=== PATIENT | male | born 1945 | race Caucasian/White ===

== ENCOUNTER → 2018-06-22 | Outpatient (CLI) | payer MEDICARE, OTHER ==
[~2018-06-22] MED LIST: ASPIRIN E.C. 8181 MG PO; CIPRO 500MG TA500 MG PO; FLOMAX 0.40.4 MG/CAP PO; METOPROLOL50 MG PO; NITROSTAT0.15 MG SL; SIMVASTATIN20 MG PO
[2018-06-22 10:03] LABS: CHOLESTEROL RISK RATIO 2.6
== END ==
LOC: COL.LAB 09:19
PROVIDERS: Family Medicine
DX: E78.5 Hyperlipidemia, unspecified (principal)

== ENCOUNTER → 2018-08-17 | Outpatient (CLI) | payer MEDICARE, OTHER ==
[2018-08-17 08:33] LABS: BASO # 0.1 (0.0-0.2); BASO % 0.6 % (0.0-2.0); EOS # 0.1 (0.0-0.7); EOS % 1.4 % (0-4.0); GRAN # 5.5 (1.4-6.5); GRAN % 71.1 % (42.2-75.2); HEMATOCRIT 42.1 % (42.0-52.0); HEMOGLOBIN 13.9 g/dl (13.5-18.0); LYMPH # 1.1 (1.2-3.4); LYMPH % 13.6 % (20.0-51.0); MEAN CELL VOLUME 93 fl (80.0-100.0); MEAN CORPUSCULAR HEMOGLOBIN 31 pg (27.0-31.0); MEAN CORPUSCULAR HGB CONC 33 g/dl (33.0-37.0); MEAN PLATELET VOLUME 10.7 fl (7.4-10.4); MONO % 12.5 % (1.7-9.3); PLATELET COUNT 217 K/mm3 (130-400); RED BLOOD COUNT 4.51 M/mm3 (4.20-5.60); REDCELL DISTRIBUTION WIDTH-CV 14.6 % (11.5-14.5)
[2018-08-17 08:37] LABS: CALCIUM 9.2 mg/dL (8.4-10.2); CREATININE, serum 1.25 mg/dL (0.66-1.25); POTASSIUM 4.2 mmol/L (3.4-5.0)
== END ==
LOC: COL.CARD 07:40
PROVIDERS: Urology
DX: N40.0 Benign prostatic hyperplasia without lower urinary tract symptoms (principal); D49.4 Neoplasm of unspecified behavior of bladder; L98.9 Disorder of the skin and subcutaneous tissue, unspecified

== ENCOUNTER 2018-09-06 08:08 | Day surgery (SDC) | payer MEDICARE, OTHER ==
[~2018-09-06] VITALS: Ht 177.8 cm; Wt 99.6 kg
[2018-09-06] VITALS (8 sets, daily range): BP systolic 146–178; BP diastolic 62–83; PULSE 64–76; TEMP 98–98.2
[2018-09-06] MEDS ORDERED: THEO-DUR 3300 MG/TAB PO (09:16)
[2018-09-06] MEDS ORDERED: COZAAR 25MG25 MG/TAB PO (09:17)
[2018-09-06] MEDS ORDERED: CORDARONE200 MG/TAB PO (09:18)
[2018-09-06] MEDS ORDERED: PULMICORT0.5 MG/2 M IH (09:19)
[2018-09-06] MEDS ORDERED: IMDUR 30MG30 MG/TAB PO (09:22)
[2018-09-06] MEDS ORDERED: BROVANA15 MCG/2 M IH (09:22)
--- NOTE | 2018-09-06 17:25 | NUR ---
PT TO ROOM 321-2 PER BED WITH YAKELIN JACOBS GIVING REPORT @0586. PATIENT IS A/O X3, LUNGS CLEAR, BOWEL SOUNDS PRESENT. BLANKENSHIP TO DD WITH CBI SLOW CLEAR FLUID IN COLLECTION BAG. PT DENIES PAIN, LOOKING AT MENU FOR FOOD.
--- NOTE | 2018-09-06 21:00 | NUR ---
Patient in bed, is alert and oriented x4. Has Oxygen on at 3L/nc as per at home, patient has COPD with O2 dependency. Lungs are diminished without wheeze. Abdomen soft, has gauze dressing to left groin, D/I. Has mcknight to BSD with CBI infusing at moderate rate. Urine is bloody in tubing. Patient denies pain. Mcknight catheter care provided. HS meds administered. Placed SCD's on patient. IVF infusing to left hand at 100cc/hr without redness or swelling.
[2018-09-07] VITALS (8 sets, daily range): BP systolic 133–194; BP diastolic 62–82; PULSE 58–74; TEMP 97.6–98.6
--- NOTE | 2018-09-07 00:30 | NUR ---
CBI continues at moderate rate with pink tinged urine noted in tubing. Taking oral fluids well and will cap IVF after this bag is complete. Resting well in bed.
--- NOTE | 2018-09-07 05:00 | NUR ---
Denies pain, CBI continues at minimal rate with pink tinged urine in mcknight tubing.
--- NOTE | 2018-09-07 09:05 | NUR ---
Initial visit; Patient thanked Business Enterprise Officer for offering spiritual care and wishing him God's blessings.
--- NOTE | 2018-09-07 10:16 | NUR ---
CRISTI and SW student met with the patient to discuss discharge plan. The patient lives in [place] with his , Xin. The patient uses oxygen at home and receives his oxygen from [facility] in [place]. The patient states that he has a walker available at home but does not currently need to use it. The patient's PCP is Dr. Guevara Lee and he receives his medications from [facility] in [place]. The patient reports no difficulties obtaining his medications. The patient's living will is in his chart but not a DPOA-HC. The patient plans to return home with his upon discharge. No additional needs at this time.
--- NOTE | 2018-09-07 18:00 | NUR ---
Patient has done well today. His blood pressure has been elevated even after his morning medications. Discussed that after he gets out of the hospital he needs to follow up with primary care doctor. His BP was elevated on admission before surgery. Urine is a lot clearer than it was this am. Very few clots this am. Denies pain today. No complaints of nausea. CBI flowing very slowly. No other changes at this time. Call light within reach.
--- NOTE | 2018-09-07 21:00 | NUR ---
Patient awake, alert and oriented x4. Has oxygen at 3L/NC. IV to left hand without redness or swelling, still receiving Ancef 2GM's every 8 hrs. Mcknight to BSD with CBI that is clamped, urine yellow without clots. Has dry drsg to left groin. Denies pain. Hopes to go home tomorrow. Takes HS meds at this time, mcknight cares given.
[2018-09-08 00:26] VITALS: BP 135/59; PULSE 58
--- NOTE | 2018-09-08 00:30 | NUR ---
Urine remains yellow with CBI clamped.
[2018-09-08 03:44] VITALS: BP 148/64; PULSE 58; TEMP 98.4
--- NOTE | 2018-09-08 06:00 | NUR ---
Patient denies pain. CBI remains clamped, urine yellow.
[2018-09-08 07:54] VITALS: BP 166/61; PULSE 72; TEMP 97.7
--- NOTE | 2018-09-08 09:18 | NUR ---
patient in hospital due to removal of groing lesion. found patient resting in bed. A&OX4. stated no pain, provided catheter care. IV in left hand showed signs of previous bleeding but none currently. on O2 at 3 liters. call light within reach. patient stated no further needs.
--- NOTE | 2018-09-08 11:03 | NUR ---
unable to give cefazolin. IV access failed.
[2018-09-08 12:47] VITALS: BP 137/57; PULSE 80; TEMP 97.4
--- NOTE | 2018-09-08 12:58 | NUR ---
Follow-up visit; Patient thanked Oil Gas And Pipe Tester for looking in on him again today and wishing him well.
--- NOTE | 2018-09-08 13:05 | NUR ---
CBI going. producing very light pink drainage into mcknight. patient refused bath for the moment wantint to wait until their doctor visit. patient stated no pain. family members are visiting. call light within reach.
--- NOTE | 2018-09-08 13:54 | NUR ---
removed mcknight. removed 30ml of fluid from bladder of mcknight. slight drainage after removing.
[2018-09-08 15:35] VITALS: BP 145/56; PULSE 77; TEMP 97.8
--- NOTE | 2018-09-08 19:00 | NUR ---
Patient has been voiding very little amounts since mcknight catheter discontinued. Bladder scanned before and after a void and patient is only voiding about half the amount of what is in his bladder. Patient is staying the night because of the urianary retention. Dr Calvo came by to see patient. No other changes at this time. Call light within reach.
[2018-09-08 19:55] VITALS: BP 152/59; PULSE 78; TEMP 98.3
--- NOTE | 2018-09-08 20:40 | NUR ---
Shift assessment complete. Patient resting in bed, denies pain. PVR bladder scan 26ml. Patient waiting for respiratory to apply CPAP. Will continue to assess bladder function.
--- NOTE | 2018-09-08 22:57 | NUR ---
Patient resting in bed, sleeping. Will reassess pain when awake.
[2018-09-09 01:41] VITALS: BP 149/67; PULSE 59; TEMP 98.3
--- NOTE | 2018-09-09 04:36 | NUR ---
Patient resting in bed. Denies pain currently. Says pain "hurts like the dickens" when urinating. Patient agreeable to ordered tylenol. Will reassess to make sure tylenol is sufficient. Patient ok with plan.
[2018-09-09 04:39] VITALS: BP 147/79; PULSE 56; TEMP 97.9
[2018-09-09 09:00] VITALS: BP 158/72; PULSE 73; TEMP 98.3
[2018-09-09 12:51] VITALS: BP 118/60; PULSE 79; TEMP 97.7
--- NOTE | 2018-09-09 15:10 | NUR ---
Voiding tea colored urine with some burning. Ambulatory in room with O2. Dismissed to home with family.
== END 2018-09-09 15:10 | disposition home or self-care (01) ==
LOC: SDCO 08:08 → SURG 16:40 → SDCO 09-08 16:40 → SURG 09-08 16:40 → SDCO 09-09 15:10
DX: C67.9 Malignant neoplasm of bladder, unspecified (principal); N30.81 Other cystitis with hematuria; N40.1 Benign prostatic hyperplasia with lower urinary tract symptoms; R33.8 Other retention of urine; Z79.899 Other long term (current) drug therapy; N42.0 Calculus of prostate; D22.5 Melanocytic nevi of trunk; K26.9 Duodenal ulcer, unspecified as acute or chronic, without hemorrhage or perforation; I48.0 Paroxysmal atrial fibrillation; Z95.5 Presence of coronary angioplasty implant and graft; Z79.82 Long term (current) use of aspirin; Z87.891 Personal history of nicotine dependence; G43.909 Migraine, unspecified, not intractable, without status migrainosus; Z85.828 Personal history of other malignant neoplasm of skin; G47.33 Obstructive sleep apnea (adult) (pediatric); J44.9 Chronic obstructive pulmonary disease, unspecified; I25.5 Ischemic cardiomyopathy; I25.10 Atherosclerotic heart disease of native coronary artery without angina pectoris; I10 Essential (primary) hypertension; E78.5 Hyperlipidemia, unspecified; Z80.0 Family history of malignant neoplasm of digestive organs; Z82.3 Family history of stroke; Z82.49 Family history of ischemic heart disease and other diseases of the circulatory system
CPT/HCPCS: OP; J0690; J2250; J2270; J2704; J3010; J3480; J7120

== ENCOUNTER → 2018-09-19 | Outpatient (CLI) | payer MEDICARE, OTHER ==
[~2018-09-19] MED LIST changes: +BROVANA15 MCG/2 M IH; +CORDARONE200 MG/TAB PO; +COZAAR 25MG25 MG/TAB PO; +IMDUR 30MG30 MG/TAB PO; +PULMICORT0.5 MG/2 M IH; +THEO-DUR 3300 MG/TAB PO
[2018-09-19 17:03] LABS: COLLECTION METHOD CLEAN CATCH
[2018-09-19 17:05] LABS: BASO % 0.4 % (0.0-2.0); EOS # 0.2 (0.0-0.7); EOS % 3.3 % (0-4.0); GRAN # 5.2 (1.4-6.5); GRAN % 71.9 % (42.2-75.2); HEMATOCRIT 44.1 % (42.0-52.0); HEMOGLOBIN 14.4 g/dl (13.5-18.0); LYMPH # 0.9 (1.2-3.4); MEAN CELL VOLUME 93 fl (80.0-100.0); MEAN CORPUSCULAR HEMOGLOBIN 30 pg (27.0-31.0); MEAN CORPUSCULAR HGB CONC 33 g/dl (33.0-37.0); MEAN PLATELET VOLUME 10.6 fl (7.4-10.4); MONO # 0.8 (0.1-0.6); MONO % 10.6 % (1.7-9.3); PLATELET COUNT 191 K/mm3 (130-400); RED BLOOD COUNT 4.74 M/mm3 (4.20-5.60); REDCELL DISTRIBUTION WIDTH-CV 14.7 % (11.5-14.5)
[2018-09-19 17:41] LABS: MUCOUS Present /lpf; PH 5 (5-8); SQUAMOUS EPITHELIAL 0-2 /hpf; URINE APPEARANCE Hazy; URINE BACTERIA Rare /hpf; URINE BILIRUBIN Negative (NEGATIVE); URINE BLOOD 3+ (NEGATIVE); URINE COLOR Yellow; URINE GLUCOSE Negative (NEGATIVE); URINE KETONE Negative (NEGATIVE); URINE LEUKOCYTE ESTERASE 1+ (NEGATIVE); URINE NITRATE Negative (NEGATIVE); URINE PROTEIN(semi-quant) 1+ (NEGATIVE); URINE RBC >50 /hpf; URINE UROBILINOGEN Negative (NEGATIVE); URINE WBC >50 /hpf
== END ==
LOC: COL.RAD 15:51
PROVIDERS: Internal Medicine Pulmonary Disease
DX: R06.02 Shortness of breath (principal); R06.00 Dyspnea, unspecified

== ENCOUNTER 2018-10-25 08:29 | Day surgery (SDC) | payer MEDICARE, OTHER ==
[2018-10-25] VITALS (10 sets, daily range): BP systolic 118–157; BP diastolic 64–79; PULSE 68–72; TEMP 97.3–98.5
[~2018-10-25] VITALS: Ht 175.3 cm; Wt 96.7 kg
[2018-10-25] MEDS ORDERED: TOPROL XL 25MG25 MG PO (09:05)
[2018-10-25] MEDS ORDERED: ATROVENT I0.2 MG/1 M IH (09:08)
[2018-10-25] MEDS ORDERED: LEVAQUIN 5500 MG/TA1 PO (09:09)
[2018-10-25] MEDS ORDERED: PROAIR HFA0.09 MG/AC IH (09:09)
--- NOTE | 2018-10-25 10:30 | NUR ---
Patient is resting and awaits surgery. Spouse in room and call light remains in reach.
--- NOTE | 2018-10-25 14:17 | NUR ---
PATIENT TO ROOM 348 PER BED WITH REPORT FROM YAKELIN JACOBS. PT IS A/O X3 CBI TO DD WITH CLEAR FLUID IN BLANKENSHIP BAG. IV TO PUMP PER ORDERS. O2 @ 3L, ORIENTED PT TO ROOM.
--- NOTE | 2018-10-25 16:12 | NUR ---
PATIENT EATING AND DRINKING DENIES NEEDS\PAIN.
--- NOTE | 2018-10-25 18:59 | NUR ---
REPORT TO EDER JACOBS.
--- NOTE | 2018-10-25 22:10 | NUR ---
Pt resting in bed, CBI is flowing freely with yellow fluid drainage, shift assessments complete, left Pt call light in reach, bed in lowest position.
[2018-10-26] VITALS: BP 158/66; PULSE 65; TEMP 97.9
[2018-10-26 04:00] VITALS: BP 172/79; PULSE 62; TEMP 98.1
[2018-10-26 07:24] VITALS: BP 159/70; PULSE 60; TEMP 97.8
--- NOTE | 2018-10-26 09:02 | NUR ---
Initial visit; Patient thanked Services Program Manager for looking in on him and wishing him well.
[2018-10-26 12:03] VITALS: BP 139/65; PULSE 71; TEMP 98.1
--- NOTE | 2018-10-26 13:14 | NUR ---
Patient alert and oriented, answers questions appropriately. See assessment. Ulloa catheter patent and draining clear yellow urine, CBI clamped. C/o occasional bladder spasm pain, no other c/o at this time.
--- NOTE | 2018-10-26 13:48 | NUR ---
SW met with patient to discuss discharge planning. Patient lives independently at home with his . Patient's PCP is Dr Guevara Lee and he obtains prescriptions from [facility] pharmacy. Patient does not use any medical equipment or home health services. Patient reports he does have a DPOA. SW does not anticipate any discharge needs.
--- NOTE | 2018-10-26 13:49 | NUR ---
Pt. is laying in bed sleeping at this time. Breathing is even and nonlabored. Pt. appears comfortable and not in pain. Call light in reach and bed low. Catheter draining clear yellow urine.
[2018-10-26 16:07] VITALS: BP 153/69; PULSE 67; TEMP 97
[2018-10-26 20:32] VITALS: BP 159/68; PULSE 67; TEMP 98.5
--- NOTE | 2018-10-26 21:03 | NUR ---
Patient resting in bed. Assessment completed- lungs clear, abdominal sounds active, uplses +3, cap refill <3 seconds. Indwelling mcknight catheter in place with dependent drainage. Denies pain/nausea. Evening medications administered. No further needs at this time.
[2018-10-27] VITALS: BP 178/75; PULSE 63; TEMP 98.9
[2018-10-27 00:33] VITALS: BP 160/80
--- NOTE | 2018-10-27 00:33 | NUR ---
Elevated BP noted, manual BP obtained after repositioning pt. SBP 160, closer to pt's baseline, will continue to monitor.
[2018-10-27 04:00] VITALS: BP 168/78; PULSE 64; TEMP 98.3
--- NOTE | 2018-10-27 05:16 | NUR ---
Pt slept for most of the night. Ulloa catheter in place. No reports of pain. No needs at this time.
--- NOTE | 2018-10-27 07:02 | NUR ---
REPORT GIVEN TO REYNALDO SAEED.
[2018-10-27 07:14] VITALS: BP 169/75; PULSE 66; TEMP 98
--- NOTE | 2018-10-27 08:00 | NUR ---
PATIENT SITTING UP IN BED THIS MORNING. PATIENT IS A&O. VSS. PATIENT STATES THAT HE HAS SOME SOB WITH ACTIVITY. SHALLOW BRETHING NOTED. ALL LUNG PETERSON DIMINISHED UPON AUSCULTATION. PATIENT STATES THAT HE HAS A PRODUCTIVE COUGH WITH CLEAR MUCOUS. BLANKENSHIP CATHETER TO DEPENDENT DRAINAGE WITH CLEAR YELLOW URINE PRESENT IN BLANKENSHIP BAG. RIGHT FOREARM TO INT. CALL LIGHT WITHIN REACH. PATIENT DENIES ANY NEEDS AT THIS TIME.
--- NOTE | 2018-10-27 10:02 | NUR ---
Follow-up visit; Patient and his thanked Student Advisor for looking in on him again today and wishing him well.
[2018-10-27 12:24] VITALS: BP 167/64; PULSE 69; TEMP 98
--- NOTE | 2018-10-27 13:39 | NUR ---
Pt resting in bed with visiting. Pt waiting on Dr Calvo to come and visit to see if he could be released. Pt ambulated to bathroom for BM but stated just gas. Pt also stated blood in toilet d/t straining. Nurse notified.
--- NOTE | 2018-10-27 15:20 | NUR ---
PATIENT'S BLANKENSHIP CATHETER PRIMED WITH 120MLS OF STERILE WATER AND PULLED. 29 MLS OF SALINE ASPIRATED FROM BLANKENSHIP BALLOON. PATIENT TOLERATED WELL. 6 CUP ROUTINE STARTED PER DR. KIRKLAND'S ORDERS.
[2018-10-27 16:15] VITALS: BP 163/73; PULSE 72; TEMP 97.8
--- NOTE | 2018-10-27 17:55 | NUR ---
PATIENT'S LEFT HAND INT DC'D PER PENDING DISCHARGE. PATIENT TOLERATED WELL. DISCHARGE INSTRUCTIONS REVIEWED WITH PATIENT AND . ALL QUESTIONS ANSWERED. PATIENT PERSONAL BELONGINGS GATHERED. PATIENT TAKEN TO PERSONAL VEHICLE VIA WHEELCHAIR BY SURGICAL STAFF. PATIENT DISCHARGED.
== END 2018-10-27 18:05 | disposition home or self-care (01) ==
LOC: SDCO 08:29 → SURG 14:00 → SDCO 10-27 18:05
DX: C67.2 Malignant neoplasm of lateral wall of bladder (principal); Z95.5 Presence of coronary angioplasty implant and graft; N30.81 Other cystitis with hematuria; N30.31 Trigonitis with hematuria; Z79.899 Other long term (current) drug therapy; Z79.82 Long term (current) use of aspirin; Z87.891 Personal history of nicotine dependence
CPT/HCPCS: OP; J0461; J0690; J2405; J2704; J3010; J3480; J7120

== ENCOUNTER 2018-11-24 07:33 | Day surgery (SDC) | payer MEDICARE, OTHER ==
[2018-11-24] VITALS (11 sets, daily range): BP systolic 132–156; BP diastolic 54–76; PULSE 59–69; TEMP 97.6–97.8
[~2018-11-24] VITALS: Ht 175.3 cm; Wt 98.1 kg
[~2018-11-24 07:33] MED LIST changes: +ATROVENT I0.2 MG/1 M IH; +LEVAQUIN 5500 MG/TA1 PO; +PROAIR HFA0.09 MG/AC IH; +TOPROL XL 25MG25 MG PO
--- NOTE | 2018-11-24 08:56 | NUR ---
Patient resting on cart and awaits surgery. IV fluids infusing and spouse in room. Call light in reach.
[2018-11-24] MEDS ORDERED: TOVIAZ8 MG PO (08:58)
--- NOTE | 2018-11-24 12:40 | NUR ---
Patient up from OR. Alert and oriented x3. CBI infusing at a very slow rate. Ulloa to dependent drainage with clear yellow urine present in bag. Post op fluids infusing via gravity. Denies pain or further needs at this time.
--- NOTE | 2018-11-24 18:29 | NUR ---
Patient in room resting. CBI continues to infuse at a very slow rate, mcknight to dependent drainage with clear yellow urine present in bag. Continues to deny pain at this time. Tolerating eating and drinking without c/o nausea. Denies further needs at this time. Will report off to awake overnight monitor.
--- NOTE | 2018-11-24 20:00 | NUR ---
REPORT RECEIVED. ASSUMED CARE FOR TACTICAL DECEPTION PLANS OFFICER. PLAN OF CARE DISCUSSED. ASSESSMENT COMPLETE. VS STABLE. DENIES PAIN. CBI TO DEPENDENT DRAINAGE-SLOW DRIP-URINE IS CLEAR AND LIGHT YELLOW. DENIES N/V. TOLERATING PO. CALL LIGHT WITHIN REACH. BED IN LOW POSITION. WHEELS LOCKED. WILL MONITOR.
[2018-11-25 00:12] VITALS: BP 150/62; PULSE 61; TEMP 98.4
--- NOTE | 2018-11-25 03:47 | NUR ---
HAS SLEPT MOST OF THIS SHIFT. DENIES PAIN. VS HAVE REMAINED STABLE. CBI FLOWING AT A SLOW RATE TO DEPENDENT DRAINAGE. HAS REMAINED LIGHT YELLOW/CLEAR. DENIES NEEDS AT THIS TIME. WILL MONITOR.
[2018-11-25 04:50] VITALS: BP 159/76; PULSE 61; TEMP 97.9
--- NOTE | 2018-11-25 05:15 | NUR ---
Discontined mcknight catheter, primed bladder with 150 of fluid, aspirated 25ml of fluid from balloon. Patient tolerated procedure well. Educated patient on 6 cup routine. Provided patient with urinal. Denies further needs at this time.
--- NOTE | 2018-11-25 06:46 | NUR ---
REPORT GIVEN TO REYNALDO OLVERA
[2018-11-25 07:26] VITALS: BP 173/66; PULSE 62; TEMP 98.1
--- NOTE | 2018-11-25 08:30 | NUR ---
Patient in bed resting. Alert and oriented x 3. Shift assessment complete. CBI clamped, mcknight to dependent drainage with clear yellow urine present in bag. Assisted patient to restroom, x1 assist, steady gait. Denies pain or further needs at this time.
[2018-11-25 12:16] VITALS: BP 165/61; PULSE 65; TEMP 98
--- NOTE | 2018-11-25 12:29 | NUR ---
Clinical Data Associate offered to pray but just visited briefly with patient.
--- NOTE | 2018-11-25 15:20 | NUR ---
Patient voided without difficulty, clear yellow urine.
--- NOTE | 2018-11-25 15:29 | NUR ---
Dr. Calvo in to see patient
--- NOTE | 2018-11-25 16:10 | NUR ---
Discharge instructions provided to patient. Educated on activity restrictions and when to call providers. Patient verbalized understanding. All questions answered. INT to left wrist discontinued, catheter tip intact. Tolerated procedure well. Denies further needs at this time. Patient out by wheelchair with surgical staff.
== END 2018-11-25 16:04 | disposition home or self-care (01) ==
LOC: SDCO 07:33 → SURG 14:43 → SDCO 11-25 16:04
DX: C67.1 Malignant neoplasm of dome of bladder (principal); N30.80 Other cystitis without hematuria; R35.0 Frequency of micturition; Z95.5 Presence of coronary angioplasty implant and graft; Z87.891 Personal history of nicotine dependence; Z79.899 Other long term (current) drug therapy; Z79.82 Long term (current) use of aspirin; Z85.038 Personal history of other malignant neoplasm of large intestine
CPT/HCPCS: OP; J0690; J2370; J2405; J2550; J2704; J3010; J7050; J7120

== ENCOUNTER 2018-12-15 09:04 | Day surgery (SDC) | payer MEDICARE, OTHER ==
[~2018-12-15] VITALS: Ht 175.3 cm; Wt 99.6 kg
[~2018-12-15 09:04] MED LIST changes: +TOVIAZ8 MG PO
[2018-12-15 09:31] VITALS: BP 162/74; PULSE 64; TEMP 97.5
[2018-12-15 11:57] VITALS: BP 136/73; PULSE 103; TEMP 97.3
--- NOTE | 2018-12-15 11:57 | NUR ---
The patient arrived back to [place] [facility] from the operating room at this time. The patient appears drowsy but arouses easily to his name. The patient's dressing to his left chest appears clean, dry, and intact. The patient's post operative vital signs were started at this time. The patient's was not in the waiting room at this time, the nurse will check again for her later. Call light is within reach. Will continue to monitor the patient.
[2018-12-15 12:12] VITALS: BP 156/74; PULSE 57
--- NOTE | 2018-12-15 12:12 | NUR ---
The patient appears more alert at this time. The patient's is back in the waiting room and was brought back to be at the patient's bedside. The patient agrees to try some ice water. Will continue to monitor the patient.
[2018-12-15 12:27] VITALS: BP 169/80; PULSE 58
[2018-12-15] MEDS ORDERED: NORCO 325 MG-51 TAB PO (12:27)
--- NOTE | 2018-12-15 12:27 | NUR ---
The patient tried some ice water and appeared to tolerate it well. The patient voices a desire to be discharged home at his next vital sign check. The patient's remains at his bedside at [facility]. The patient denies any pain or nausea at this time. Vital signs appear stable. Will continue to monitor the patient.
[2018-12-15 12:50] VITALS: BP 162/72; PULSE 57
--- NOTE | 2018-12-15 12:50 | NUR ---
Discharge instructions were reviewed with the patient and his at this time. They both verbalized understanding and have no questions for the nurse at this time. The patient's IV to his left hand was removed and a pressure dressing was applied to the site. The nurse instructed the patient to get dressed and notify the staff when he is ready to be escorted out.
--- NOTE | 2018-12-15 13:10 | NUR ---
The patient was escorted out via wheelchair to a private vehicle by REYNALDO Espino. The patient's belongings and discharge paperwork were sent with him. The patient's is present to drive him home. The patient was placed back on his home oxygen at 3L per nasal cannula for discharge.
== END 2018-12-15 13:10 | disposition home or self-care (01) ==
LOC: SDCO 09:04
DX: C67.9 Malignant neoplasm of bladder, unspecified (principal); M19.90 Unspecified osteoarthritis, unspecified site; I48.91 Unspecified atrial fibrillation; I10 Essential (primary) hypertension; I25.10 Atherosclerotic heart disease of native coronary artery without angina pectoris; J44.9 Chronic obstructive pulmonary disease, unspecified; Z99.81 Dependence on supplemental oxygen; Z85.828 Personal history of other malignant neoplasm of skin; Z87.891 Personal history of nicotine dependence; G47.33 Obstructive sleep apnea (adult) (pediatric); I25.2 Old myocardial infarction
CPT/HCPCS: C1788; J0690; J1644; J2704; J3010; J7120

== ENCOUNTER → 2019-01-22 | Outpatient (CLI) | payer MEDICARE, OTHER ==
[~2019-01-22] MED LIST changes: +NORCO 325 MG-51 TAB PO
== END ==
LOC: COL.RAD 14:15
DX: C67.1 Malignant neoplasm of dome of bladder (principal); N17.9 Acute kidney failure, unspecified

== ENCOUNTER → 2019-04-10 | Outpatient (CLI) | payer MEDICARE, OTHER | LOC: COL.RAD 04-09 12:45 | DX: N17.8 Other acute kidney failure (principal) ==

== ENCOUNTER → 2021-05-12 | Outpatient (CLI) | payer MEDICARE, OTHER | LOC: COL.RAD 09:52 | DX: Z12.2 Encounter for screening for malignant neoplasm of respiratory organs (principal); Z87.891 Personal history of nicotine dependence; J43.9 Emphysema, unspecified ==